=== PATIENT | male | born 1965 | race Caucasian/White ===

== ENCOUNTER 2018-05-31 10:56 | Emergency (ER) | payer OTHER ==
[2018-05-31 11:07] VITALS: RESP 18
--- NOTE | 2018-05-31 11:27 | XR ---
EXAMINATION TYPE: XR knee complete RT DATE OF EXAM: 05/31/2018 COMPARISON: 10/11/2013 HISTORY: Pain TECHNIQUE: Three-view right knee FINDINGS: Very minimal spurring is from the medial femoral condyle. This is stable. No acute fracture s are evident. No joint effusion is evident. IMPRESSION: 1. No acute osseous abnormality.
--- NOTE | 2018-05-31 12:13 | ED ---
General Adult HPI - General Chief complaint: Extremity Injury, Lower Stated complaint: Knee Pain Time Seen by Provider: 05/31/18 11:06 Source: patient, RN notes reviewed, old records reviewed Mode of arrival: ambulatory Limitations: physical limitation - History of Present Illness Initial comments: This is a 53-year-old male the ER for evaluation of right knee pain today. Patient has history of knee issues and right knee issues including arthroscopy. Patient has no recent injuries or trauma. Patient is had knee pain times one year maybe longer. Patient states pain and symptoms of sniffling worsened since procedure of arthroscopy. Patient states she's had increased swelling. No new trauma. No new injury - Related Data Home Medications Medication Instructions Recorded Confirmed Amitriptyline HCl [Elavil] 10 mg PO DAILY 07/06/15 05/31/18 Atenolol/Chlorthalidone 1 tab PO DAILY 07/06/15 05/31/18 [Atenolol-Chlorthalidone 100-25] Atorvastatin [Lipitor] 10 mg PO DAILY 07/06/15 05/31/18 Ranitidine HCl [Zantac] 150 mg PO HS 12/03/15 05/31/18 Potassium Chloride ER [K-Dur 20] 20 meq PO DAILY 05/31/18 05/31/18 Allergies Allergy/AdvReac Type Severity Reaction Status Date / Time bee venom protein (honey bee) Allergy Swelling Verified 05/31/18 11:30 Review of Systems ROS Statement: Those systems with pertinent positive or pertinent negative responses have been documented in the HPI. ROS Other: All systems not noted in ROS Statement are negative. Past Medical History Past Medical History: COPD, GERD/Reflux, Hyperlipidemia, Hypertension, Skin Disorder Additional Past Medical History / Comment(s): Back Pain, rash on elbows History of Any Multi-Drug Resistant Organisms: MRSA Date of last positivie culture/infection: 05/13/2014 MDRO Source:: Right Axilla Past Surgical History: Back Surgery, Orthopedic Surgery, Tonsillectomy Additional Past Surgical History / Comment(s): left wrist surgery, surgery fx nose, rt elbow surgery, Past Anesthesia/Blood Transfusion Reactions: No Reported Reaction Past Psychological History: Depression Smoking Status: Current every day smoker Past Alcohol Use History: None Reported Past Drug Use History: None Reported - Past Family History Mother Family Medical History: Cancer General Exam - General Exam Comments Initial Comments: Patient has mild effusion and tenderness to right knee Limitations: physical limitation General appearance: alert, in no apparent distress Head exam: Present: atraumatic, normocephalic, normal inspection Eye exam: Present: normal appearance, PERRL, EOMI. Absent: scleral icterus, conjunctival injection, periorbital swelling ENT exam: Present: normal exam, mucous membranes moist Neck exam: Present: normal inspection. Absent: tenderness, meningismus, lymphadenopathy Respiratory exam: Present: normal lung sounds bilaterally. Absent: respiratory distress, wheezes, rales, rhonchi, stridor Cardiovascular Exam: Present: regular rate, normal rhythm, normal heart sounds. Absent: systolic murmur, diastolic murmur, rubs, gallop, clicks GI/Abdominal exam: Present: soft, normal bowel sounds. Absent: distended, tenderness, guarding, rebound, rigid Extremities exam: Present: normal inspection, full ROM, normal capillary refill. Absent: tenderness, pedal edema, joint swelling, calf tenderness Back exam: Present: normal inspection Neurological exam: Present: alert, oriented X3, CN II-XII intact Psychiatric exam: Present: normal affect, normal mood Skin exam: Present: warm, dry, intact, normal color. Absent: rash Course Vital Signs 05/31/18 11:04 Temperature 98.4 F Pulse Rate 92 Respiratory 18 Rate Blood Pressure 152/101 O2 Sat by Pulse 97 Oximetry - Reevaluation(s) Reevaluation #1: 05/31/18 12:12 Spoke with patient regarding the need for The orthopedic care and follow-up. Patient states he has had arthroscopy in this knee in the past. Medical Decision Making - Medical Decision Making 53 male the ER for evaluation of right knee pain, chronic knee pain greater than one year. Patient has normal x-ray here today, we'll give follow-up with orthopedics for continued evaluation management of knee pain and effusion - Radiology Data Radiology results: report reviewed (X-ray right knee is negative), image reviewed Disposition Clinical Impression: Right knee pain, Effusion, right knee Disposition: HOME SELF-CARE Instructions: Knee Pain (ED) Is patient prescribed a controlled substance at d/c from ED?: No Referrals: Darian Freire MD [Medical Doctor] - 1-2 days
[2018-05-31 12:36] VITALS: BP 146/98; PULSE 90; TEMP 97.1
== END 2018-05-31 12:35 | disposition home or self-care (01) ==
LOC: EC 10:56
DX: M25.461 Effusion, right knee (principal); M25.561 Pain in right knee; K21.9 Gastro-esophageal reflux disease without esophagitis; E78.5 Hyperlipidemia, unspecified; I10 Essential (primary) hypertension; F32.9 Major depressive disorder, single episode, unspecified; F17.200 Nicotine dependence, unspecified, uncomplicated; Z86.14 Personal history of Methicillin resistant Staphylococcus aureus infection; Z79.899 Other long term (current) drug therapy; Z91.030 Bee allergy status
CPT/HCPCS: 99284

== ENCOUNTER → 2018-11-05 | Outpatient (CLI) | payer OTHER ==
--- NOTE | 2018-11-05 13:19 | EST ---
EXERCISE STRESS DATE OF SERVICE: 11/05/2018 AGE: 53 SEX: Male HT: 70 WT: 230 PROTOCOL: Colby STAGE: I DURATION OF EXERCISE: 3 minutes HEART RATE REST: 77 BLOOD PRESSURE REST: 114/71 MAXIMUM HEART RATE ACHIEVED: 113 MAXIMUM BLOOD PRESSURE: 164/101 85% MPHR: 144 100% MPHR: 169 METS: 4.4 INDICATIONS: Chest pain. CLINICAL INFORMATION: STRESS DATA: Pretesting physical examination showed a heart rate of 77, pressure is 141/71 mmHg. Baseline EKG showed sinus mechanism. The patient exercised on the treadmill according to Colby protocol for a total of 3 minutes and achieved 4.4 METs. The max heart rate was 113, which is about 67% of maximum predicted heart rate. Maximum blood pressure was 164/101 mmHg. Clinically the patient did not have any symptoms of chest pain or chest discomfort but he develop knee pain that prevented him from continuing exercising. CONCLUSION: 1. Poor exercise tolerance. 2. Nondiagnostic stress test due to the patient not achieving 85% of maximum predicted heart rate. 3. Different modality of stress test is recommended. MMODL / IJN: [id number] /
== END | disposition home or self-care (01) ==
LOC: RADNMMAIN 10:33
PROVIDERS: ATTEND Internal Medicine
DX: R07.9 Chest pain, unspecified (principal)
CPT/HCPCS: 93017

== ENCOUNTER → 2019-03-07 | Outpatient (CLI) | payer OTHER ==
[~2019-03-07] MED LIST: REGADENOSON 0.4 MG/5 ML SYRINGE IV ONE
--- NOTE | 2019-03-07 12:49 | NM ---
EXAMINATION TYPE: NM stress lexiscan cardiolite DATE OF EXAM: 03/07/2019 COMPARISON: NONE HISTORY: Chest pain TECHNIQUE: After the intravenous administration of 9.95 mCi Tc 99m Sestamibi - Cardiolite resting SP ECT images acquired 55 minutes post injection. The patient received 0.4mg Lexiscan, 24.3 mCi Tc 99m Sestamibi - Stress images obtained [address] injection FINDINGS: Review of stress and rest SPECT images demonstrates no reversible perfusion abnormality. Perfusion a bnormality seen in the inferior wall on rest images does not persist on stress images and therefore i s artifactual either related to diaphragmatic attenuation or GI attenuation. Gated analysis shows nor mal wall motion with an estimated left ventricular ejection fraction of 59 %. TID is within normal li mits calculated at 1.15. IMPRESSION: No scintigraphic evidence for reversible ischemia.
--- NOTE | 2019-03-07 19:56 | EST ---
EXERCISE STRESS AGE: 53 SEX: Male HT: 5'11" WT: 219 pounds PROTOCOL: Lexiscan Cardiolite STAGE: DURATION OF EXERCISE: HEART RATE REST: 65 BLOOD PRESSURE REST: 108/65 MAXIMUM HEART RATE ACHIEVED: 86 MAXIMUM BLOOD PRESSURE: 108/65 85% MPHR: 100% MPHR: METS: INDICATIONS: Chest pain. CLINICAL INFORMATION: Baseline rhythm is sinus mechanism, rate 65, normal axis, intervals, minor nonspecific ST-T wave changes. Baseline blood pressure 108/65 mmHg. Patient received an injection of Lexiscan. Electrocardiographic monitoring revealed no evidence of diagnostic ischemic ST deviation. Cardiolite was injected per protocol. CONCLUSION: 1. Non-diagnostic electrocardiograph stress testing. 2. Nuclear images will be reported separately. MMODL / IJN: [id number] /
== END | disposition home or self-care (01) ==
LOC: RADNMMAIN 08:28
PROVIDERS: ATTEND Internal Medicine
DX: R07.9 Chest pain, unspecified (principal)
CPT/HCPCS: 93017; 78452; A9500; J2785

== ENCOUNTER → 2019-03-11 | Outpatient (CLI) | payer OTHER ==
--- NOTE | 2019-03-11 08:30 | CT ---
EXAMINATION TYPE: CT brain wo con DATE OF EXAM: 03/11/2019 COMPARISON: None HISTORY: Headache, syncope,dizziness CT DLP: [address] of the brain was performed. The ventricles, basal cisterns and sulci overlying the cerebral convexities demonstrate mild enlargem ent. There is no evidence for intracranial hemorrhage or sulcal effacement. There is decreased attenuation about the periventricular white matter and deep white matter of both c erebral hemispheres, compatible with chronic small vessel ischemia. Differential diagnosis does inclu de demyelination. No mass effects are seen.No midline shift. Osseous calvarium is intact. If symptoms persist consider MRI. IMPRESSION: 1. Age related atrophic and chronic small vessel ischemic change without acute intracranial process s een at this time.
== END | disposition home or self-care (01) ==
LOC: RADCTMAIN 07:40
PROVIDERS: ATTEND Internal Medicine
DX: G31.1 Senile degeneration of brain, not elsewhere classified (principal); I67.82 Cerebral ischemia
CPT/HCPCS: 70450

== ENCOUNTER → 2019-05-05 | Outpatient (CLI) | payer OTHER ==
--- NOTE | 2019-05-05 22:43 | MR ---
EXAMINATION TYPE: MR knee RT wo con DATE OF EXAM: 05/05/2019 COMPARISON: Prior right knee MRI December 05, 2012. Right knee x-ray May 31, 2018 HISTORY: Medial meniscal tear and ACL tear per order. Pain and swelling for 5 years with history of p rior surgery per patient. TECHNIQUE: Multiplanar, multisequence images of the knee is performed without IV contrast. FINDINGS: MEDIAL MENISCUS: Anterior and posterior horns are intact without tear. LATERAL MENISCUS: Posterior horn is intact without tear. Further progression of tear anterior horn wi th increased abnormal signal now extending to superior and inferior articular surfaces. CRUCIATE LIGAMENTS: The anterior and posterior cruciate ligaments are intact and unremarkable. COLLATERAL LIGAMENTS: The medial collateral ligament and lateral collateral ligament complex are inta ct and unremarkable. EXTENSOR MECHANISM: Visualized quadriceps and patellar tendons are intact. EFFUSION: No significant suprapatellar joint effusion. POPLITEAL CYST: No popliteal/neri cyst. TRICOMPARTMENT SPACES: Mild to moderate tricompartment joint space loss with mild to moderate spurrin g with findings most prominent patellofemoral compartment. CARTILAGE: There are areas of full-thickness chondromalacia patella that are present. BONE MARROW SIGNAL: Areas of heterogeneous increased T2 signal involving the posterior aspect of the patella are identified. Progression of findings from prior MRI noted. OTHER: No additional significant abnormality is appreciated. IMPRESSION: 1. Full-thickness tear anterior horn lateral meniscus with progression from 2013 MRI. 2. Fairly moderate tricompartment degenerative changes most prominent patellofemoral compartment wher e there is significant chondromalacia patella and progression from 2013 MRI noted.
== END | disposition home or self-care (01) ==
LOC: RADMRIMAIN 19:02
PROVIDERS: ATTEND Orthopaedic Surgery
DX: M22.41 Chondromalacia patellae, right knee (principal); S83.281A Other tear of lateral meniscus, current injury, right knee, initial encounter; C49.9 Malignant neoplasm of connective and soft tissue, unspecified

== ENCOUNTER → 2019-06-02 | Outpatient (CLI) | payer OTHER ==
--- NOTE | 2019-06-02 16:16 | CT ---
EXAMINATION TYPE: CT chest wo con DATE OF EXAM: 06/02/2019 COMPARISON: NONE HISTORY: Chest pain for several years. Pt c/o palpable lump forming near xiphoid process CT DLP: 978.50 mGycm. Automated Exposure Control for Dose Reduction was Utilized. TECHNIQUE: CT scan of the thorax is performed without IV contrast. High resolution protocol is perfo rmed as requested with 1 mm sequences obtained in 10 mm intervals in supine and prone technique. FINDINGS: LUNGS: Focal linear scarring anteriorly right middle lobe is present. No suspicious peripheral reticu lation and fibrosis. No pleural effusion. No bronchiectasis. No large mass. No pneumothorax bilateral ly. MEDIASTINUM: Lack of IV contrast is noted to limit evaluation for mediastinal and especially hilar ad enopathy. There are no definitive greater than 1 cm hilar or mediastinal lymph nodes. No cardiomega ly or pericardial effusion is seen. Moderate to severe three-vessel coronary artery calcification. OTHER: No additional significant abnormality is seen. IMPRESSION: Focal linear scarring anterior right middle lobe. No significant peripheral fibrotic ho ges otherwise. No acute pulmonary process is seen. Moderate to severe three-vessel coronary artery ca lcification should be correlated with additional coronary risk factors.
== END | disposition home or self-care (01) ==
LOC: RADCTMAIN 15:43
PROVIDERS: ATTEND Internal Medicine
DX: I25.10 Atherosclerotic heart disease of native coronary artery without angina pectoris (principal); R07.9 Chest pain, unspecified
CPT/HCPCS: 71250

== ENCOUNTER → 2019-07-18 | Outpatient (CLI) | payer OTHER ==
[2019-07-18 11:05] LABS: HCT 40.1 % (39.0-53.0); HGB 13.7 gm/dL (13.0-17.5); MCH 29.1 pg (25.0-35.0); MCHC 34.1 g/dL (31.0-37.0); MCV 85.4 fL (80.0-100.0); Mean Platelet Volume 7.7; Platelet Count 244 k/uL (150-450); RBC 4.69 m/uL (4.30-5.90); RDW 13.2 % (11.5-15.5); WBC 8.1 k/uL (3.8-10.6)
[2019-07-18 11:17] LABS: African American GFR (CKD) >90 (>60 ml/min/1.73 sqM); Anion Gap 10 mmol/L; Blood Urea Nitrogen 22 mg/dL (9-20); Carbon Dioxide 28 mmol/L (22-30); Chloride 103 mmol/L (98-107); Potassium 4.2 mmol/L (3.5-5.1); Sodium 141 mmol/L (137-145)
== END | disposition home or self-care (01) ==
LOC: LABPAT 10:09
PROVIDERS: ATTEND Internal Medicine Interventional Cardiology
DX: Z01.812 Encounter for preprocedural laboratory examination (principal)
CPT/HCPCS: 80051; 82565; 84520; 85027

== ENCOUNTER → 2019-07-21 | Day surgery (SDC) | payer OTHER ==
[2019-07-16 14:42] VITALS: BMI 32.3
[~2019-07-21] MED LIST changes: +ALPRAZolam 0.25 MG TAB PO PRN; +ALPRAZolam 0.5 MG TAB PO PRN; +ASPIRIN 325 MG TAB PO STA; +ATORVASTATIN 80 MG TAB PO STA; +HEPARIN SODIUM 1,000 UN/ML (10ML VL) IV ONE; +HEPARIN SODIUM 1,000 UN/ML (10ML VL) ONE; +HEPARIN SODIUM,PORCINE 30 ML 30 ML ONE; +IOPAMIDOL-370 125ML BTL INJ ONE; +LIDOCAINE 1% INJ 10MG/ML (20 ML MDV) ONE; +LIDOCAINE 1% INJ 10MG/ML (20 ML MDV) SQ ONE; +MIDAZOLAM 2 MG/2 ML VIAL IV ONE; +NITROGLYCERIN SL TABS 0.4 MG TAB SUBLINGUAL PRN; -REGADENOSON 0.4 MG/5 ML SYRINGE IV ONE; +RX INFO: IV CONTRAST WAS GIVEN 1 EACH MISC MISCELLANE PRN; +SODIUM CHLORIDE 0.9% 1,000 ML IV SCH; +SODIUM CHLORIDE 0.9% 1,000 ML in EMPTY BAG 1 BAG IV ONE; +VERAPAMIL 2.5 MG/ML 2 ML AMP ONE; +fentaNYL (PF) 50 MCG/ML 2 ML AMP IV ONE; +fentaNYL (PF) 50 MCG/ML 2 ML AMP ONE
[2019-07-21 10:44] VITALS: RESP 16
[2019-07-21] MEDS: VERAPAMIL SYRINGE (5 MG/10 ML) INTRAARTER ONE ×2 (11:00→11:10)
--- NOTE | 2019-07-21 11:21 | P.PCN ---
Date of Procedure: 07/21/19 Operative Findings: CARDIAC CATHETERIZATION PERFORMING PHYSICIAN: Indra Bhagat MD, RPVI PROCEDURE PERFORMED: 1. Selective right and left coronary angiogram 2. Left heart catheterization INDICATION: This is a pleasant 54-year-old gentleman with hypertension and dyslipidemia who was experiencing symptoms of chest pain and shortness of breath. He underwent a computed tomography scan of the chest which revealed coronary calcifications. Because of the symptoms are getting worse we decided to pursue with a coronary angiogram. COMPLICATION: None APPROACH: Right radial artery LEVEL OF SEDATION: Moderate with a sedation length of 14 minutes PROCEDURE DESCRIPTION: After obtaining an informed consent, the patient was brought to cardiac laboratory chemist. Local anesthesia was performed using lidocaine subcutaneously. The right radial artery was cannulated using Seldinger technique, the guidewire passed easily, following that we advanced a 5-Kenyan sheath dilator assembly, the wire and dilator were removed and sheath was flushed. Following that, 2 mg of verapamil along with 5000 unit heparin were given. Selective right and left coronary angiogram using a 6-Kenyan JR4 and JL 3.5 catheters. Following that we did left heart catheterization using 6-Kenyan pigtail catheter. The procedure was completed there was no complication. SELECTIVE CORONARY ANGIOGRAM: The right coronary artery: Is a large caliber vessel and a dominant vessel. The proximal RCA has mild d isease only. In the mid and distal portion appears to be angiographically normal. Bifurcates into PDA and PLV branches and both appeared to be angiographically normal. Left main: Calcified but angiographically normal. The left circumflex: It is a large caliber vessel and nondominant vessel. The left circumflex is angiographically normal. In the midportion gives rises into a large OM branch w hich appeared to be angiographically normal. The left anterior descending artery: Is a large caliber vessel. Its angiographically normal. Gives rises into the first and second diagonal branches and both appeared to be angiographically normal. HEMODYNAMICS: The LVEDP was 12 mmHg without significant gradient across aortic valve CONCLUSION: 1. Calcified right and left coronary systems 2. Mild disease involving the RCA POSTPROCEDURE MANAGEMENT: 1. Aggressive cholesterol control 2. Smoking cessation 3. Follow-up with the patient
[2019-07-21 18:50] VITALS: BP 133/78; PULSE 76
== END | disposition home or self-care (01) ==
LOC: CATHCVL 09:51
PROVIDERS: ATTEND Internal Medicine Interventional Cardiology
DX: I25.10 Atherosclerotic heart disease of native coronary artery without angina pectoris (principal); I25.84 Coronary atherosclerosis due to calcified coronary lesion; F17.200 Nicotine dependence, unspecified, uncomplicated; Z79.82 Long term (current) use of aspirin; Z79.899 Other long term (current) drug therapy; E78.5 Hyperlipidemia, unspecified; I10 Essential (primary) hypertension
CPT/HCPCS: 93458; C1769; C1894; J2250; J2001; J3010; J1644; Q9967

== ENCOUNTER 2020-02-25 14:09 | Observation (INO) | payer OTHER ==
[2020-02-25 14:21] VITALS: TEMP 98.2
[2020-02-25] MEDS ORDERED: ASPIRIN 81 MG PO STA (14:39)
[2020-02-25] MEDS ORDERED: NITROGLYCERIN OINT 1 INCH/GM PACKET TOPICAL STA (14:39)
--- NOTE | 2020-02-25 14:42 | ED ---
General Adult HPI - General Chief complaint: Chest Pain Stated complaint: Chest Pain Time Seen by Provider: 02/25/20 14:23 Source: patient, RN notes reviewed Mode of arrival: wheelchair Limitations: no limitations - History of Present Illness Initial comments: Patient is a pleasant 54-year-old male presenting to the emergency Department with complaints of chest discomfort. Onset of symptoms was several weeks ago. Patient has intermittent episodes that do get severe. Patient has sharp discomfort in the left chest and has pressure in his left arm to the elbow. Patient feels sweaty and short of breath with it. Patient also gets a little bit lightheaded. No nausea. Last heart catheterization was June. - Related Data Home Medications Medication Instructions Recorded Confirmed Aspirin 162 mg PO DAILY 07/16/19 02/25/20 Buprenorphine HCl/Naloxone HCl 1 film SL TID 07/16/19 02/25/20 [Suboxone 8 mg-2 mg Sl Film] Furosemide [Lasix] 20 mg PO DAILY 07/16/19 02/25/20 Atorvastatin [Lipitor] 20 mg PO HS 02/25/20 02/25/20 Omeprazole 20 mg PO DAILY 02/25/20 02/25/20 Potassium Chloride [K-Tab ER] 10 meq PO DAILY 02/25/20 02/25/20 Valsartan [Diovan] 160 mg PO DAILY 02/25/20 02/25/20 Allergies Allergy/AdvReac Type Severity Reaction Status Date / Time bee venom protein (honey bee) Allergy Swelling Verified 02/25/20 15:13 Review of Systems ROS Statement: Those systems with pertinent positive or pertinent negative responses have been documented in the HPI. ROS Other: All systems not noted in ROS Statement are negative. Constitutional: Denies: fever Eyes: Denies: eye pain ENT: Denies: ear pain Respiratory: Reports: as per HPI. Denies: cough Cardiovascular: Reports: as per HPI, chest pain Endocrine: Denies: fatigue Gastrointestinal: Denies: abdominal pain Genitourinary: Denies: dysuria Musculoskeletal: Denies: back pain Skin: Denies: rash Neurological: Denies: weakness Past Medical History Past Medical History: COPD, GERD/Reflux, Hyperlipidemia, Hypertension, Oste oarthritis (OA), Rheumatoid Arthritis (RA), Skin Disorder, Syncope, Vascular Disorder Additional Past Medical History / Comment(s): Back Pain, knee pain, swelling in feet, frequent headaches, chronic insomnia, granuloma anular skin condition History of Any Multi-Drug Resistant Organisms: MRSA Date of last positivie culture/infection: 05/13/2014 MDRO Source:: Right Axilla Past Surgical History: Back Surgery, Orthopedic Surgery, Tonsillectomy Additional Past Surgical History / Comment(s): left wrist surgery, surgery fx nose, rt elbow surgery, back fusion x2, arthroscopy knee Past Anesthesia/Blood Transfusion Reactions: No Reported Reaction Past Psychological History: ADD/ADHD, Anxiety, Depression Smoking Status: Current every day smoker Past Alcohol Use History: None Reported Past Drug Use History: Marijuana - Past Family History Mother Family Medical History: Cancer General Exam Limitations: no limitations General appearance: alert, in no apparent distress Head exam: Present: normocephalic Eye exam: Present: normal appearance Neck exam: Present: normal inspection Respiratory exam: Present: normal lung sounds bilaterally. Absent: chest wall tenderness Cardiovascular Exam: Present: regular rate, normal rhythm Expanded Peripheral pulses: 2+: Radial (R), Radial (L), Posterior Tibialis (R), Posterior Tibialis (L) GI/Abdominal exam: Present: soft. Absent: distended, tenderness Extremities exam: Present: normal inspection. Absent: pedal edema, calf tenderness Neurological exam: Present: alert Psychiatric exam: Present: normal affect, normal mood Skin exam: Present: normal color Course Vital Signs 02/25/20 02/25/20 14:19 15:21 Temperature 98.2 F Pulse Rate 69 79 Respiratory 18 16 Rate Blood Pressure 144/96 131/80 O2 Sat by Pulse 97 97 Oximetry EKG Findings - EKG Comments: EKG Findings:: Neuro sinus rhythm 62. NJ 164. QRS 94. QT 418. QTC 424. Normal axis. Normal QRS. No acute ST change. Medical Decision Making - Medical Decision Making Patient reevaluated and resting comfortably in bed, symptom-free at this time. Patient updated on results and plan. Case was discussed in detail with Dr. Haley, who will admit covered for Dr. goel. Computed tomography scan of the chest was ordered. - Lab Data Result diagrams: 02/25/20 14:40 02/25/20 14:40 Lab Results 02/25/20 02/25/20 02/25/20 Range/Units 14:40 14:40 14:40 WBC 7.6 (3.8-10.6) k/uL RBC 4.44 (4.30-5.90) m/uL Hgb 12.6 L (13.0-17.5) gm/dL Hct 38.4 L (39.0-53.0) % MCV 86.5 (80.0-100.0) fL MCH 28.3 (25.0-35.0) pg MCHC 32.8 (31.0-37.0) g/dL RDW 13.7 (11.5-15.5) % Plt Count 166 (150-450) k/uL Neutrophils % 57 % Lymphocytes % 30 % Monocytes % 6 % Eosinophils % 5 % Basophils % 0 % Neutrophils # 4.3 (1.3-7.7) k/uL Lymphocytes # 2.3 (1.0-4.8) k/uL Monocytes # 0.5 (0-1.0) k/uL Eosinophils # 0.4 (0-0.7) k/uL Basophils # 0.0 (0-0.2) k/uL PT 10.1 (9.0-12.0) sec INR 1.0 (<1.2) APTT 30.6 H (22.0-30.0) sec D-Dimer 0.75 H (<0.60) mg/L FEU Sodium 139 (137-145) mmol/L Potassium 4.0 (3.5-5.1) mmol/L Chloride 105 (98-107) mmol/L Carbon Dioxide 29 (22-30) mmol/L Anion Gap 5 mmol/L BUN 15 (9-20) mg/dL Creatinine 0.83 (0.66-1.25) mg/dL Est GFR (CKD-EPI)AfAm >90 (>60 ml/min/1.73 sqM) Est GFR (CKD-EPI)NonAf >90 (>60 ml/min/1.73 sqM) Glucose 82 (74-99) mg/dL Calcium 9.2 (8.4-10.2) mg/dL Magnesium 2.1 (1.6-2.3) mg/dL Total Bilirubin 0.3 (0.2-1.3) mg/dL AST 38 (17-59) U/L ALT 32 (4-49) U/L Alkaline Phosphatase 51 (38-126) U/L Troponin I (0.000-0.034) ng/mL Total Protein 7.1 (6.3-8.2) g/dL Albumin 4.2 (3.5-5.0) g/dL 02/25/20 Range/Units 14:40 WBC (3.8-10.6) k/uL RBC (4.30-5.90) m/uL Hgb (13.0-17.5) gm/dL Hct (39.0-53.0) % MCV (80.0-100.0) fL MCH (25.0-35.0) pg MCHC (31.0-37.0) g/dL RDW (11.5-15.5) % Plt Count (150-450) k/uL Neutrophils % % Lymphocytes % % Monocytes % % Eosinophils % % Basophils % % Neutrophils # (1.3-7.7) k/uL Lymphocytes # (1.0-4.8) k/uL Monocytes # (0-1.0) k/uL Eosinophils # (0-0.7) k/uL Basophils # (0-0.2) k/uL PT (9.0-12.0) sec INR (<1.2) APTT (22.0-30.0) sec D-Dimer (<0.60) mg/L FEU Sodium (137-145) mmol/L Potassium (3.5-5.1) mmol/L Chloride (98-107) mmol/L Carbon Dioxide (22-30) mmol/L Anion Gap mmol/L BUN (9-20) mg/dL Creatinine (0.66-1.25) mg/dL Est GFR (CKD-EPI)AfAm (>60 ml/min/1.73 sqM) Est GFR (CKD-EPI)NonAf (>60 ml/min/1.73 sqM) Glucose (74-99) mg/dL Calcium (8.4-10.2) mg/dL Magnesium (1.6-2.3) mg/dL Total Bilirubin (0.2-1.3) mg/dL AST (17-59) U/L ALT (4-49) U/L Alkaline Phosphatase (38-126) U/L Troponin I <0.012 (0.000-0.034) ng/mL Total Protein (6.3-8.2) g/dL Albumin (3.5-5.0) g/dL - Radiology Data Radiology results: image reviewed (Chest x-ray shows COPD with borderline mild cardiomegaly.) Disposition Clinical Impression: Chest pain Disposition: ADMITTED IP TO THIS HOSP Is patient prescribed a controlled substance at d/c from ED?: No Referrals: Joseph Rodriguez MD [Primary Care Provider] - 1-2 days Decision Time: 15:44
[2020-02-25 14:53] LABS: Basophils % (A) 0 %; Eosinophils # (A) 0.4 k/uL (0-0.7); Eosinophils % (A) 5 %; HCT 38.4 % (39.0-53.0); HGB 12.6 gm/dL (13.0-17.5); Lymphocytes # (A) 2.3 k/uL (1.0-4.8); Lymphocytes % (A) 30 %; MCH 28.3 pg (25.0-35.0); MCHC 32.8 g/dL (31.0-37.0); MCV 86.5 fL (80.0-100.0); Mean Platelet Volume 8.7; Monocytes # (A) 0.5 k/uL (0-1.0); Monocytes % (A) 6 %; Neutrophils # (A) 4.3 k/uL (1.3-7.7); Neutrophils % (A) 57 %; Platelet Count 166 k/uL (150-450); RBC 4.44 m/uL (4.30-5.90); RDW 13.7 % (11.5-15.5); WBC 7.6 k/uL (3.8-10.6)
--- NOTE | 2020-02-25 15:06 | XR ---
EXAMINATION TYPE: XR chest 2V DATE OF EXAM: 02/25/2020 COMPARISON: 06/02/2019 TECHNIQUE: PA and lateral views submitted. HISTORY: Chest FINDINGS: The lungs are clear and there is no pneumothorax, pleural effusion, or focal pneumonia. Heart mildl y prominent. Hypertrophic and degenerative change of the spine. No overt failure. Biapical pleural th ickening. Hyperinflation suggests COPD. IMPRESSION: 1. COPD with borderline to mild cardiomegaly. No overt failure..
[2020-02-25 15:07] LABS: ALT 32 U/L (4-49); AST 38 U/L (17-59); African American GFR (CKD) >90 (>60 ml/min/1.73 sqM); Albumin 4.2 g/dL (3.5-5.0); Alkaline Phosphatase 51 U/L (38-126); Anion Gap 5 mmol/L; Blood Urea Nitrogen 15 mg/dL (9-20); Calcium 9.2 mg/dL (8.4-10.2); Carbon Dioxide 29 mmol/L (22-30); Chloride 105 mmol/L (98-107); Glucose 82 mg/dL (74-99); Magnesium 2.1 mg/dL (1.6-2.3); Non-African American GFR(CKD) >90 (>60 ml/min/1.73 sqM); Sodium 139 mmol/L (137-145); Total Bilirubin 0.3 mg/dL (0.2-1.3); Total Protein 7.1 g/dL (6.3-8.2)
[2020-02-25 15:08] LABS: Partial Thromboplastin Time 30.6 sec (22.0-30.0); Prothrombin Time 10.1 sec (9.0-12.0)
[2020-02-25 15:16] LABS: D-Dimer 0.75 mg/L FEU (<0.60)
[2020-02-25 15:24] VITALS: RESP 16
[2020-02-25] MEDS ORDERED: NITROGLYCERIN SL TABS 0.4 MG TAB SUBLINGUAL PRN (15:44)
--- NOTE | 2020-02-25 15:54 | CT ---
CT CHEST FOR PULMONARY EMBOLISM. EXAMINATION TYPE: CT angio chest DATE OF EXAM: 02/25/2020 INDICATION: chest pain, elevated d-dimer CT DLP: 451.8 mGycm, Automated exposure control for dose reduction was used. CONTRAST: Patient injected with 97cc mL of Isovue 370. COMPARISON: CT chest 06/02/2019 TECHNIQUE: CT of the chest is performed on a spiral scan at 2 mm thick sections. Study is performed with intravenous contrast timed for evaluation for pulmonary embolism. This will limit additional po rtions of the evaluation. 3-D MIP images reconstructed by the technologist are reviewed on the compu ter in the coronal and sagittal planes. FINDINGS: No persistent filling defects are evident to suggest an acute pulmonary embolism. No mediastinal or hilar adenopathy enlarged by CT criteria is evident. The ascending aorta diameter at the level of the main pulmonary artery is 3.4 cm. The main pulmonary artery diameter at the bifur cation is 3.0 cm. Lung windows are clear. Limited CT section through the upper abdomen are unremarkable. IMPRESSIONS: 1. No acute pulmonary embolism.
--- NOTE | 2020-02-25 17:42 | P.HPIM ---
History of Present Illness Patient is a pleasant 54-year-old male came in with compensative chest pain has been going on for a few days episode ache on and off with the increasing frequency since yesterday on the left side of the chest radiating to the left ar m pressure-like sensation mild to moderate in severity only lasts for a few minutes patient is little bit lightheaded along with mild diaphoresis no nausea not associated with food nonpleuritic patient had mildly elevated d-dimer CT angios the chest was negative for pulmonary embolism no cough no pneumonia on the CAT scan. Patient had a stress test about any ago which was negative, patient also had a cardiac catheterization by Dr. Bhagat which showed some atherosclerotic vascular disease but didn't really need any intervention at that time, as per the report of that is calcified right and left coronary system mild disease involving RCA. Patient can use to smoke. Review of Systems REVIEW OF SYSTEMS: CONSTITUTIONAL: No fever, no malaise, no fatigue. HEENT: No recent visual problems or hearing problems. Denied any sore throat. CARDIOVASCULAR: No orthopnea, PND, no palpitations, no syncope. PULMONARY: no cough, no hemoptysis. GASTROINTESTINAL: No diarrhea, no nausea, no vomiting, no abdominal pain. NEUROLOGICAL: No headaches, no weakness, no numbness. HEMATOLOGICAL: Denies any bleeding or petechiae. GENITOURINARY: Denies any burning micturition, frequency, or urgency. MUSCULOSKELETAL/RHEUMATOLOGICAL: Denies any joint pain, swelling, or any muscle pain. ENDOCRINE: Denies any polyuria or polydipsia. The rest of the 14-point review of systems is negative. Past Medical History Past Medical History: COPD, GERD/Reflux, Hyperlipidemia, Hypertension, Osteoarthritis (OA), Rheumatoid Arthritis (RA), Skin Disorder, Syncope, Vascular Disorder Additional Past Medical History / Comment(s): Back Pain, knee pain, swelling in feet, frequent headaches, chronic insomnia, granuloma anular skin condition History of Any Multi-Drug Resistant Organisms: MRSA Date of last positivie culture/infection: 05/13/2014 MDRO Source:: Right Axilla Past Surgical History: Back Surgery, Orthopedic Surgery, Tonsillectomy Additional Past Surgical History / Comment(s): left wrist surgery, surgery fx nose, rt elbow surgery, back fusion x2, arthroscopy knee Past Anesthesia/Blood Transfusion Reactions: No Reported Reaction Past Psychological History: ADD/ADHD, Anxiety, Depression Smoking Status: Current every day smoker Past Alcohol Use History: None Reported Past Drug Use History: Marijuana - Past Family History Mother Family Medical History: Cancer Medications and Allergies Home Medications Medication Instructions Recorded Confirmed Type Aspirin 162 mg PO DAILY 07/16/19 02/25/20 History Buprenorphine HCl/Naloxone HCl 1 film SL TID 07/16/19 02/25/20 History [Suboxone 8 mg-2 mg Sl Film] Furosemide [Lasix] 20 mg PO DAILY 07/16/19 02/25/20 History Atorvastatin [Lipitor] 20 mg PO HS 02/25/20 02/25/20 History Omeprazole 20 mg PO DAILY 02/25/20 02/25/20 History Potassium Chloride [K-Tab ER] 10 meq PO DAILY 02/25/20 02/25/20 History Valsartan [Diovan] 160 mg PO DAILY 02/25/20 02/25/20 History Allergies Allergy/AdvReac Type Severity Reaction Status Date / Time bee venom protein (honey bee) Allergy Swelling Verified 02/25/20 15:13 Physical Exam Vitals: Vital Signs Temp Pulse Resp BP Pulse Ox 02/25/20 15:21 79 16 131/80 97 02/25/20 14:19 98.2 F 69 18 144/96 97 Intake and Output 02/25/20 02/25/20 02/25/20 06:59 14:59 22:59 Other: Weight 102.058 kg PHYSICAL EXAMINATION: GENERAL: The patient is alert and oriented x3, not in any acute distress. Well developed, well nourished. HEENT: Pupils are round and equally reacting to light. EOMI. No scleral icterus. No conjunctival pallor. Normocephalic, atraumatic. No pharyngeal erythema. No thyromegaly. CARDIOVASCULAR: S1 and S2 present. No murmurs, rubs, or gallops. PULMONARY: Chest is clear to auscultation, no wheezing or crackles. ABDOMEN: Soft, nontender, nondistended, normoactive bowel sounds. No palpable o rganomegaly. MUSCULOSKELETAL: No joint swelling or deformity. EXTREMITIES: No cyanosis, clubbing, or pedal edema. NEUROLOGICAL: Gross neurological examination did not reveal any focal deficits. SKIN: No rashes. Results CBC & Chem 7: 02/25/20 14:40 02/25/20 14:40 Labs: Abnormal Lab Results - Last 24 Hours (Table) 02/25/20 02/25/20 Range/Units 14:40 14:40 Hgb 12.6 L (13.0-17.5) gm/dL Hct 38.4 L (39.0-53.0) % APTT 30.6 H (22.0-30.0) sec D-Dimer 0.75 H (<0.60) mg/L FEU Assessment and Plan Plan: -Chest pain with some typical features patient does have risk factors although the EKG is within normal limits troponin is negative, we'll rule out acute coronary syndromes and unstable angina and cardiology will evaluate the patient further management as per cardiology. -COPD without any acute exception of some hypogastric dysphagia reflux disease Hyperlipidemia - hypertension -Peripheral vascular disease with the continued nicotine use: Counseling was provided -ADHD, anxiety, depression For above-mentioned chronic medical problems patient resumed and continued on appropriate home medications.
[2020-02-25] MEDS ORDERED: NITROGLYCERIN OINT 1 INCH/GM PACKET TOPICAL SCH (18:00)
[2020-02-25 18:18] VITALS: BP 152/87; PULSE 92
[2020-02-25] MEDS ORDERED: ATORVASTATIN 20 MG TAB PO SCH (21:00)
[2020-02-25] MEDS ORDERED: PATIENT'S OWN (Buprenorphine Hcl/Naloxone Hcl [Suboxone 8 Mg-2 Mg Sl Film] 1 FILM) SUBLINGUAL SCH (22:00)
[2020-02-26] MEDS ORDERED: PANTOPRAZOLE 40 MG TABLET PO SCH (07:30)
[2020-02-26] MEDS ORDERED: ASPIRIN 325 MG TAB PO SCH (09:00)
[2020-02-26] MEDS ORDERED: VALSARTAN 160 MG TAB PO SCH (09:00)
[2020-02-26] MEDS ORDERED: FUROSEMIDE 20 MG TAB PO SCH (09:00)
[2020-02-26] MEDS ORDERED: POTASSIUM CHLORIDE ER 10 MEQ TAB.ER.PRT PO SCH (09:00)
--- NOTE | 2020-03-01 13:27 | P.DS ---
Providers Date of admission: 02/25/20 15:44 Expected date of discharge: 02/25/20 Attending physician: Alysia Haley Consults: 02/25/20 15:44 Consult Physician Urgent Consulting Provider: Indra Bhagat Consult Reason/Comments: cp Do you want consulting provider notified?: Yes Primary care physician: Jennifer Ruiz [facility] Course: Patient left AGAINST MEDICAL ADVICE Plan - Discharge Summary New Discharge Prescriptions: No Action Aspirin 162 mg PO DAILY Furosemide [Lasix] 20 mg PO DAILY Buprenorphine HCl/Naloxone HCl [Suboxone 8 mg-2 mg Sl Film] 1 film SL TID Valsartan [Diovan] 160 mg PO DAILY Potassium Chloride [K-Tab ER] 10 meq PO DAILY Atorvastatin [Lipitor] 20 mg PO HS Omeprazole 20 mg PO DAILY Discharge Medication List Aspirin 162 mg PO DAILY 07/16/19 [History] Buprenorphine HCl/Naloxone HCl [Suboxone 8 mg-2 mg Sl Film] 1 film SL TID 07/16/19 [History] Furosemide [Lasix] 20 mg PO DAILY 07/16/19 [History] Atorvastatin [Lipitor] 20 mg PO HS 02/25/20 [History] Omeprazole 20 mg PO DAILY 02/25/20 [History] Potassium Chloride [K-Tab ER] 10 meq PO DAILY 02/25/20 [History] Valsartan [Diovan] 160 mg PO DAILY 02/25/20 [History] Follow up Appointment(s)/Referral(s): Joseph Rodriguez MD [Primary Care Provider] - 1-2 days Discharge Disposition: Left Against Medical Advice
== END 2020-02-25 18:33 | disposition left against medical advice (07) ==
LOC: EC 14:09 → 1SOBS 15:44
PROVIDERS: ADMIT Internal Medicine; ATTEND Internal Medicine
DX: R07.89 Other chest pain (principal); R42 Dizziness and giddiness; R61 Generalized hyperhidrosis; M79.602 Pain in left arm; R06.02 Shortness of breath; R79.89 Other specified abnormal findings of blood chemistry; F17.200 Nicotine dependence, unspecified, uncomplicated; J44.9 Chronic obstructive pulmonary disease, unspecified; K21.9 Gastro-esophageal reflux disease without esophagitis; E78.5 Hyperlipidemia, unspecified; I10 Essential (primary) hypertension; M19.90 Unspecified osteoarthritis, unspecified site; M06.9 Rheumatoid arthritis, unspecified; M54.9 Dorsalgia, unspecified; M25.569 Pain in unspecified knee; M79.89 Other specified soft tissue disorders; R51 Headache; F51.04 Psychophysiologic insomnia; F41.9 Anxiety disorder, unspecified; F32.9 Major depressive disorder, single episode, unspecified; F90.9 Attention-deficit hyperactivity disorder, unspecified type; I73.9 Peripheral vascular disease, unspecified; L98.9 Disorder of the skin and subcutaneous tissue, unspecified; Z86.14 Personal history of Methicillin resistant Staphylococcus aureus infection; Z98.1 Arthrodesis status; Z79.82 Long term (current) use of aspirin; Z79.899 Other long term (current) drug therapy; Z79.891 Long term (current) use of opiate analgesic; Z91.030 Bee allergy status; Z80.9 Family history of malignant neoplasm, unspecified; Z20.828 Contact with and (suspected) exposure to other viral communicable diseases
CPT/HCPCS: 99285; 36415; 93005; 85379; 80053; 83735; 84484; 85025; 85610; 85730; 71046; 71275; G0378; U0003; Q9967

== ENCOUNTER → 2022-06-13 | Outpatient (CLI) | payer OTHER ==
--- NOTE | 2022-06-14 06:33 | MR ---
EXAMINATION TYPE: MR knee RT wo con DATE OF EXAM: 06/13/2022 COMPARISON: Prior MRI of right knee May 05, 2019 HISTORY: Right knee pain and swelling for 4+ years, history of prior surgery TECHNIQUE: Multiplanar, multisequence imaging of the right knee is performed without IV contrast. FINDINGS: MEDIAL MENISCUS: Anterior and posterior horns are intact without tear. LATERAL MENISCUS: More truncated appearance to anterior horn suggests interval partial meniscectomy c hanges. Some increase signal remains present seen best on coronal images 18 through 21 aerated CRUCIATE LIGAMENTS: The anterior and posterior cruciate ligaments are intact and unremarkable. COLLATERAL LIGAMENTS: The medial collateral ligament and lateral collateral ligament complex are inta ct and unremarkable. EXTENSOR MECHANISM: Visualized quadriceps and patellar tendons are intact. EFFUSION: Moderate to large size suprapatellar joint effusion is redemonstrated. POPLITEAL CYST: No popliteal/neri cyst. TRICOMPARTMENT SPACES: Moderate to severe patellofemoral compartment narrowing with mild spurring is redemonstrated. There is mild to moderate narrowing and spurring in the medial and lateral tibiofemor al compartments redemonstrated CARTILAGE: Significant chondromalacia patella with areas of full-thickness cartilaginous loss along t he posterior patellar pole redemonstrated. Additional cartilaginous loss medial lateral tibiofemoral compartments also redemonstrated without full-thickness loss. BONE MARROW SIGNAL: Areas of heterogeneous diminished T1 and increased T2 signal along the posterior patellar pole are again seen. New 8 mm round area of diminished T1 and increased T2 signal involving the anterior lateral aspect of the medial tibial femoral condyle with surrounding subtle T2 hyperinte nsity seen on coronal image 14. Findings suspicious for osteochondral injury and adjacent abnormal leonardo ne marrow edema. OTHER: No additional significant abnormality is appreciated. IMPRESSION: 1. Interval surgery anterior horn lateral meniscus thought present, some intrasubstance tear in the r emnant horn is now present. 2. Tricompartment degenerative changes with moderate to advanced findings in the patellofemoral redem onstrated as detailed above. 3. Moderate to large-sized suprapatellar joint effusion now noted. 4. New 8 mm osteochondral defect anterior lateral aspect of the medial tibial plateau is felt present .
== END | disposition home or self-care (01) ==
LOC: RADMRIMAIN 15:56
PROVIDERS: ATTEND Orthopaedic Surgery
DX: M17.11 Unilateral primary osteoarthritis, right knee (principal); M23.306 Other meniscus derangements, unspecified meniscus, right knee

== ENCOUNTER 2022-06-21 16:12 | Emergency (ER) | payer OTHER ==
[2022-06-21] MEDS ORDERED: DIPH,PERTUS(ACELL)TETVAC-LF 0.5 ML VIAL IM ONE (16:20)
[2022-06-21 16:21] VITALS: TEMP 98.3
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
[2022-06-21 19:59] VITALS: BP 129/67; PULSE 71; RESP 15
== END 2022-06-21 19:59 | disposition home or self-care (01) ==
LOC: EC 16:12
DX: S22.42XA Multiple fractures of ribs, left side, initial encounter for closed fracture (principal); S80.211A Abrasion, right knee, initial encounter; S00.81XA Abrasion of other part of head, initial encounter; S50.312A Abrasion of left elbow, initial encounter; S60.417A Abrasion of left little finger, initial encounter; J44.9 Chronic obstructive pulmonary disease, unspecified; I10 Essential (primary) hypertension; E78.5 Hyperlipidemia, unspecified; F17.200 Nicotine dependence, unspecified, uncomplicated; Z79.899 Other long term (current) drug therapy; Z91.030 Bee allergy status; Z88.5 Allergy status to narcotic agent; Z23 Encounter for immunization; V13.4XXA Pedal cycle driver injured in collision with car, pick-up truck or van in traffic accident, initial encounter; Y92.410 Unspecified street and highway as the place of occurrence of the external cause
CPT/HCPCS: 73562; 73660; 72125; 70450; 71260; 74177; 90715; 99284; 90471; Q9967

== ENCOUNTER → 2022-08-08 | Outpatient (CLI) | payer OTHER ==
[2022-08-08 18:27] LABS: Basophils # (A) 0.04 X 10*3/uL (0.00-0.10); Basophils % (A) 0.6 %; Eosinophils # (A) 0.27 X 10*3/uL (0.04-0.35); Eosinophils % (A) 4.3 %; HCT 42.1 % (39.6-50.0); HGB 13.6 g/dL (13.0-17.0); Immature Grans, Automated 0.3 %; Lymphocytes # (A) 1.27 X 10*3/uL (0.90-5.00); Lymphocytes % (A) 20.3 %; MCH 28.3 pg (27.0-32.0); MCHC 32.3 g/dL (32.0-37.0); MCV 87.5 fL (80.0-97.0); Mean Platelet Volume 12.1 fL (9.5-12.2); Monocytes # (A) 0.66 X 10*3/uL (0.20-1.00); Monocytes % (A) 10.5 %; NRBC Per 100 WBC 0 /100 WBCS (0.0-0.0); Platelet Count 203 X 10*3/uL (140-440); RBC 4.81 X 10*6/uL (4.40-5.60); RDW 13.5 % (11.5-14.5); WBC 6.26 X 10*3/uL (4.50-10.00)
[2022-08-08 18:37] LABS: Anion Gap 8.1 mmol/L (10.00-18.00); Carbon Dioxide 28.5 mmol/L (20.0-27.5); Potassium 4.4 mmol/L (3.5-5.5)
== END | disposition home or self-care (01) ==
LOC: LABPAT 12:46
PROVIDERS: ATTEND Orthopaedic Surgery
DX: Z01.812 Encounter for preprocedural laboratory examination (principal); M23.91 Unspecified internal derangement of right knee
CPT/HCPCS: 80051; 85025

== ENCOUNTER 2022-08-09 08:47 | Day surgery (SDC) | payer OTHER ==
[2022-08-07 12:46] VITALS: BMI 26.3
--- NOTE | 2022-08-08 13:37 | HP ---
HISTORY AND PHYSICAL DATE OF SURGERY: 08/09/2022. HISTORY OF PRESENT ILLNESS: Shon Allred is a 57-year-old patient seen with progressive right knee pain. We discussed options for treatment. He elected to proceed with right knee arthroscopy. Consent was obtained. PAST MEDICAL HISTORY: Noncontributory. SURGICAL HISTORY: Lumbar spine surgery. DAILY MEDICATIONS: Suboxone. ALLERGIES: None. SOCIAL HISTORY: He currently smokes tobacco. PHYSICAL EVALUATION OF THE RIGHT KNEE: His range of motion is 0-130, has a moderate to severe effusion. He is tender along the medial and lateral joint lines. Has positive medial Philipp's, positive lateral Philipp's. Ligaments stable. Hip rotation without pain. Distal neurovascular exam is intact. RADIOGRAPHS: Radiographs of the right knee reveal moderate osteoarthritic changes. MRI right knee revealed lateral meniscal tear, effusion, osteochondral defect. IMPRESSION: Internal derangement of right knee lateral meniscal tear. PLAN: Right knee arthroscopy with partial lateral meniscectomy and debridement. MMODL / IJN: [id number] /
[~2022-08-09 08:47] MED LIST changes: -ALPRAZolam 0.25 MG TAB PO PRN; -ALPRAZolam 0.5 MG TAB PO PRN; -ASPIRIN 325 MG TAB PO STA; -ATORVASTATIN 80 MG TAB PO STA; +DEXAMETHASONE SOD PHOSPHATE 4 MG/ML 1 ML VIAL IV ONE; -HEPARIN SODIUM 1,000 UN/ML (10ML VL) IV ONE; -HEPARIN SODIUM 1,000 UN/ML (10ML VL) ONE; -HEPARIN SODIUM,PORCINE 30 ML 30 ML ONE; -IOPAMIDOL-370 125ML BTL INJ ONE; +LACTATED RINGERS 1,000 ML IV SCH; -LIDOCAINE 1% INJ 10MG/ML (20 ML MDV) ONE; -LIDOCAINE 1% INJ 10MG/ML (20 ML MDV) SQ ONE; -MIDAZOLAM 2 MG/2 ML VIAL IV ONE; +MIDAZOLAM 2 MG/2 ML VIAL IV PRN; -NITROGLYCERIN SL TABS 0.4 MG TAB SUBLINGUAL PRN; +ONDANSETRON 4 MG/2 ML VIAL IVP ONE; -RX INFO: IV CONTRAST WAS GIVEN 1 EACH MISC MISCELLANE PRN; +SCOPOLAMINE 1 MG/72 HR PATCH TRANSDERM ONE; -SODIUM CHLORIDE 0.9% 1,000 ML IV SCH; -SODIUM CHLORIDE 0.9% 1,000 ML in EMPTY BAG 1 BAG IV ONE; -VERAPAMIL 2.5 MG/ML 2 ML AMP ONE; -fentaNYL (PF) 50 MCG/ML 2 ML AMP IV ONE; +fentaNYL (PF) 50 MCG/ML 2 ML AMP IV PRN; -fentaNYL (PF) 50 MCG/ML 2 ML AMP ONE
[2022-08-09 09:12] VITALS: TEMP 97
[2022-08-09] MEDS ORDERED: LACTATED RINGERS 1,000 ML IV ONE ×2 (09:12→10:49)
[2022-08-09] MEDS ORDERED: KETAMINE 10 MG/ML 20 ML VIAL ONE (10:13)
[2022-08-09] MEDS ORDERED: MIDAZOLAM 2 MG/2 ML VIAL ONE (10:13)
[2022-08-09] MEDS ORDERED: GLYCOPYRROLATE 0.2 MG/ML 2 ML VIAL ONE (10:13)
[2022-08-09] MEDS ORDERED: KETOROLAC 15 MG/ML 1 ML VIAL ONE (10:13)
[2022-08-09] MEDS ORDERED: PROPOFOL 10 MG/ML 20 ML VIAL IV ONE (10:13)
[2022-08-09] MEDS ORDERED: LIDOCAINE 2% INJ 20 MG/ML (2 ML VIAL) ONE (10:13)
[2022-08-09] MEDS ORDERED: BUPIVACAIN-EPI 0.25%-1:200,000 30 ML VIAL SQ ONE (10:38)
[2022-08-09] MEDS ORDERED: HYDROmorphone 0.5 MG/0.5 ML SYRINGE IVP ONE (11:10)
--- NOTE | 2022-08-09 11:14 | P.OP ---
Date of Procedure: 08/09/22 Preoperative Diagnosis: Internal derangement right knee Postoperative Diagnosis: 1. Tear medial and lateral meniscus right knee 2. Grade 4 chondromalacia lateral femoral condyle right knee 3. Reactive synovitis medial, lateral and suprapatellar compartments right knee 4. Partial ACL tear right knee Procedure(s) Performed: 1. Arthroscopic partial medial and lateral meniscectomy right knee 2. Arthroscopic microfracture lateral femoral condyle right knee 3. Arthroscopic partial synovectomy medial, lateral and suprapatellar compartments right knee 4. Arthroscopic debridement partial ACL tear right knee Anesthesia: LOLISA, local Surgeon: Lavon Ralph Estimated Blood Loss (ml): 11 Pathology: none sent Condition: stable Disposition: PACU Indications for Procedure: 57-year-old patient seen with progressive right knee pain. After having treatment options discussed, he elected to proceed with arthroscopy. Operative Findings: see description of procedure Description of Procedure: Patient was taken to the operative suite. Patient underwent a general anesthetic by the department of anesthesia. Patient was given preoperative antibiotics. The right lower extremity was placed in a well-padded arthroscopic leg grant. The right leg was prepped and draped in the normal sterile orthopedic fashion. A lateral parapatellar and suprapatellar incision was made. Trochars were inserted. Arthroscopy was initiated. Suprapatellar pouch revealed diffuse thick reactive synovitis. The patellofemoral joint appeared to articulate congruently. There was grade 2/3 chondromalacia the patellofemoral joint with no osteochondral tears present. The scope was guided into the medial gutter. No loose bodies or plica were identified. The scope was then guided into the medial compartment. A medial parapatellar incision was made. Trocar inserted followed by probe. There was a radial tear posterior horn medial meniscus. There were grade 2 chondromalacia changes of medial femoral condyle with a small osteochondral flap tears present. There was some thick reactive synovitis anteriorly. I performed a partial medial meniscectomy getting down to stable meniscal tissue. I performed a chondroplasty of the medial femoral condyle getting down to stable osteochondral tissue. I performed a partial synovectomy decompressing the reactive synovitis anteriorly. The residual meniscus was stable. The residual osteochondral surface appeared stable. There was good decompression of the synovitis. Scope and probe were then guided into the intercondylar notch. There was a partial tear involving the anterior cruc iate ligament. I introduced a motorized shaver and debrided that getting on a stable ligamentous tissue. The residual ligament appeared stable with about 50% residual tissue. Intraoperatively the knee felt stable. The PCL was intact. The scope and probe were then guided into lateral compartment. There was a complex tear involving the anterior horn and midbody of the lateral meniscus. There was thick reactive some-itis anteriorly. There was an area of grade 3/4 chondromalacia lateral femoral condyle with some osteochondral flap tears present. I performed a partial lateral meniscectomy getting down to stable meniscal tissue. I performed a chondroplasty of the lateral femoral condyle getting down to stable osteochondral tissue. I performed a partial synovectomy. I did note an area of exposed bone lateral femoral condyle measuring approximately 1 cm diameter weightbearing surface. I introduced a microfracture awl and performed a microfracture to the area penetrating the bone with resultant bleeding at the microfracture site. The residual meniscus was stable. The residual osteochondral surface appeared stable. There was good decompression of the synovitis. The scope was in guided back into the suprapatellar compartment. I introduced her I shaver into the suprapatellar compartment. I debrided some piecemeal fragments of meniscus I encountered. I performed a partial synovectomy. Shaver was now removed. There was good decompression of the synovitis. I took one more look around the entire knee, no residual debris. Instruments were now removed from the joint. The joint was infiltrated with .25% Marcaine. Steri-Strips were applied to the portal sites. Sterile dressings were applied. The patient was placed into a HERNANDEZ hose. No tourniquet was utilized. The patient was awakened, transferred to a bed and taken to recovery stable satisfactory condition.
[2022-08-09 11:23] VITALS: RESP 16
[2022-08-09] MEDS ORDERED: IBUPROFEN 200 MG TAB PO ONE (11:58)
[2022-08-09 12:09] VITALS: BP 148/93; PULSE 71
== END 2022-08-09 12:50 | disposition home or self-care (01) ==
LOC: OR 08:47
PROVIDERS: ATTEND Orthopaedic Surgery
DX: S83.281A Other tear of lateral meniscus, current injury, right knee, initial encounter (principal); S83.241A Other tear of medial meniscus, current injury, right knee, initial encounter; M17.11 Unilateral primary osteoarthritis, right knee; S83.511A Sprain of anterior cruciate ligament of right knee, initial encounter; F17.200 Nicotine dependence, unspecified, uncomplicated; X58.XXXA Exposure to other specified factors, initial encounter; M65.88 Other synovitis and tenosynovitis, other site; M94.261 Chondromalacia, right knee
CPT/HCPCS: 29880; 29879; J2250; J1100; J0690; J2405; J1885; J2704; J1170; J2001

== ENCOUNTER → 2022-10-12 | Outpatient (CLI) | payer OTHER ==
--- NOTE | 2022-10-12 20:24 | MR ---
EXAMINATION TYPE: MR lumbar spine wo con DATE OF EXAM: 10/12/2022 COMPARISON: Prior MRI lumbar spine July 20, 2014 HISTORY: Low back pain that radiates down right leg. Lumbar fusion and radiculopathy per order. TECHNIQUE: Multiplanar, multisequence imaging of the lumbar spine is performed without IV contrast. FINDINGS: Sagittal images of the lumbar spine show vertebral body heights and alignment to appear sta ble and satisfactory. There is artifact from interval surgery or disc replacement at L3-L4 and L4-L5 levels on current study. There is disc desiccation at L2-L3 level. Disc space heights are maintained above and below surgical levels The conus medullaris remains normal in position and signal ending at T12-L1 disc space level. The bone marrow signal intensity is within normal limits above and below s urgical levels. Axial images show T12-L1 and L1-L2 levels to remain within normal limits. Axial images at L2-L3 level redemonstrates mild to moderate broad disc bulge minimally effacing the a nterior thecal sac. Patent bilateral neural foramina. Axial images at L3-L4 and L4-L5 levels show artifact from metallic disc material. There are bilateral laminectomy defects with spinous process resection. There is some effacement of the left posterolate ral thecal sac at L3-L4 level axial image 11 due to facet arthropathy. There is more prominent efface ment of the lateral thecal sac at L4-L5 level axial image 7 due to facet arthropathy. Axial images at L5-S1 level show moderate to advanced facet arthropathy. There is tiny central disc p rotrusion. There is effacement of the lateral thecal sac. There is moderate to severe bilateral neura l foraminal narrowing right greater than left seen. IMPRESSION: Interval surgical change L3-L4 and L4-L5 levels. Increasing degenerative change L5-S1 lev el noted. Further findings as detailed above.
== END | disposition home or self-care (01) ==
LOC: RADMRIMAIN 12:36
PROVIDERS: ATTEND Nurse Practitioner Family
DX: M51.17 Intervertebral disc disorders with radiculopathy, lumbosacral region (principal); M43.26 Fusion of spine, lumbar region
CPT/HCPCS: 72148

== ENCOUNTER → 2023-02-27 | Outpatient (CLI) | payer OTHER ==
--- NOTE | 2023-02-28 19:45 | CT ---
EXAMINATION TYPE: CT chest w con DATE OF EXAM: 02/27/2023 COMPARISON: Radiograph 10/02/[address] 06/21/2022 HISTORY: 57-year-old male R04.2, HEMOPTYSIS and pain TECHNIQUE: Contiguous axial scanning of the chest after the administration of 100ml mL of Isovue 300. Coronal/sagittal reconstructions performed. CT DLP: 324.7mGycm. Automatic exposure control utilized for a dose reduction. FINDINGS: Heart is normal size without pericardial effusion. Three-vessel coronary artery calcifications are pr esent and are unremarkable for coronary disease. Ectatic aortic root at 3.8 cm. Variant direct takeoff of the left vertebral artery directly from the aortic arch. No thoracic lymphadenopathy by CT size criteria. Trace bilateral gynecomastia. Mild diffuse bronchial wall thickening. Mild emphysematous change. Sagittal centrilobular groundglass nodularity is present throughout the lungs. No consolidation or pleural effusion. Central airways ap pear clear. Small hiatal hernia. Visualized upper abdomen shows moderate fold thickening within the gastric fundu s and body. Correlate to exclude any symptoms of gastritis. Bones: Moderate degenerative disc disease midthoracic spine. IMPRESSION: 1. COPD with mild emphysema. Subtle centrilobular groundglass nodularity is present throughout. Findi ngs can be seen with smoking associated respiratory bronchiolitis. 2. No acute pulmonary process. 3. CAD with 3 vessel coronary artery calcifications. 4. Small hiatal hernia. There seems to be some fold thickening in the stomach that could represent ga stritis. Correlate with patient's symptoms.
== END | disposition home or self-care (01) ==
LOC: RADCTMAIN 16:28
PROVIDERS: ATTEND Internal Medicine
DX: J43.9 Emphysema, unspecified (principal); I25.10 Atherosclerotic heart disease of native coronary artery without angina pectoris; K44.9 Diaphragmatic hernia without obstruction or gangrene; R04.2 Hemoptysis
CPT/HCPCS: 71260; Q9967

== ENCOUNTER → 2023-03-15 | Outpatient (CLI) | payer OTHER ==
[2023-03-16 01:52] LABS: Basophils # (A) 0.02 X 10*3/uL (0.00-0.10); Basophils % (A) 0.3 %; Eosinophils # (A) 0.22 X 10*3/uL (0.04-0.35); Eosinophils % (A) 3.7 %; HCT 39.5 % (39.6-50.0); HGB 12.8 d/dL (12.0-15.0); Lymphocytes # (A) 1.66 X 10*3/uL (0.90-5.00); Lymphocytes % (A) 28.2 %; MCH 29.6 pg (27.0-32.0); MCHC 32.4 d/dL (32.0-37.0); MCV 91.4 FL (80.0-97.0); Mean Platelet Volume 11.7 FL (9.5-12.2); Monocytes # (A) 0.48 X 10*3/uL (0.20-1.00); Monocytes % (A) 8.1 %; NRBC Per 100 WBC 0 X 10*3/uL (0.00-0.01); Neutrophils % (A) 59.5 %; Platelet Count 165 X 10*3/uL (140-440); RBC 4.32 X 10*6/uL (4.40-5.60); RDW 13.4 % (11.5-14.5); WBC 5.89 X 10*3/uL (4.50-10.00)
[2023-03-16 02:17] LABS: Albumin 4.5 d/dL (3.8-4.9)
[2023-03-16 02:22] LABS: ALT 21 U/L (10-49); AST 26 U/L (14-35); Albumin 4.4 d/dL (3.8-4.9); Albumin/Globulin Ratio 1.76 Ratio (1.60-3.17); Alkaline Phosphatase 59 U/L (41-126); BUN/Creat Ratio 16.78 Ratio (12.00-20.00); Blood Urea Nitrogen 15.1 mg/dL (9.0-27.0); Calcium 9.5 mg/dL (8.7-10.3); Carbon Dioxide 30.4 mmol/L (21.6-31.8); Chloride 102 mmol/L (96-109); Chol/HDL Ratio 2.57 Ratio; Globulin 2.5 d/dL (1.6-3.3); Glucose 85 mg/dL (70-110); LDL Cholesterol,Calculated 73.7 mg/dL (0.0-131.0); Potassium 4.8 mmol/L (3.5-5.5); Sodium 142 mmol/L (135-145); Total Bilirubin 0.5 mg/dL (0.3-1.2); Total Protein 6.9 d/dL (6.2-8.2); VLDL Calculation 10.54 mg/dL (5.00-40.00)
[2023-03-16 02:35] LABS: Hepatitis A Antibody IgM Nonreactive; Hepatitis B Core IgM Nonreactive; Hepatitis B Surface Antigen Nonreactive; Hepatitis C IgG Antibody Nonreactive
[2023-03-16 03:22] LABS: HIV 2 AB Non-Reactive (Non-Reactive); HIV AB P24 Non-Reactive (Non-Reactive); HIV P24 AG Non-Reactive (Non-Reactive)
[2023-03-16 20:46] LABS: Gamma Globulin 0.95 d/dL (0.70-1.50)
== END | disposition home or self-care (01) ==
LOC: LABWHC1 15:36
PROVIDERS: ATTEND Internal Medicine
DX: R21 Rash and other nonspecific skin eruption (principal)
CPT/HCPCS: 36415; 80053; 80061; 80074; 84165; 84443; 85025; 86038; 87390

== ENCOUNTER 2023-09-05 12:21 | Emergency (ER) | payer OTHER ==
[2023-09-05 12:51] VITALS: TEMP 97.2
[2023-09-05] MEDS ORDERED: KETOROLAC 15 MG/ML 1 ML VIAL IM STA (13:08)
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
--- NOTE | 2023-09-05 13:49 | XR ---
EXAMINATION TYPE: XR Hip RT and AP Pelvis DATE OF EXAM: 09/05/2023 CLINICAL HISTORY: pain TECHNIQUE: AP and frogleg views of the right hip are obtained. Single view pelvis is also submitted. COMPARISON: None. FINDINGS: There is no acute fracture/dislocation evident. The joint space appears within normal li mits. The overlying soft tissue appears unremarkable. IMPRESSION: 1. There is no acute fracture or dislocation. ICD 10 NO FRACTURE, INITIAL EVALUATION
[2023-09-05 15:46] VITALS: BP 127/81; PULSE 62; RESP 18
== END 2023-09-05 15:23 | disposition home or self-care (01) ==
LOC: EC 12:21
DX: M25.551 Pain in right hip (principal); M25.552 Pain in left hip; M54.2 Cervicalgia; G89.29 Other chronic pain; M54.9 Dorsalgia, unspecified; R53.1 Weakness; I10 Essential (primary) hypertension; J44.9 Chronic obstructive pulmonary disease, unspecified; E78.5 Hyperlipidemia, unspecified; F41.9 Anxiety disorder, unspecified; F17.200 Nicotine dependence, unspecified, uncomplicated; F12.90 Cannabis use, unspecified, uncomplicated; Z88.5 Allergy status to narcotic agent; Z91.030 Bee allergy status; Z79.899 Other long term (current) drug therapy; W01.0XXA Fall on same level from slipping, tripping and stumbling without subsequent striking against object, initial encounter; Y92.009 Unspecified place in unspecified non-institutional (private) residence as the place of occurrence of the external cause
CPT/HCPCS: 73502; 99284; 96372; J1885

== ENCOUNTER → 2024-07-09 | Outpatient (CLI) | payer OTHER ==
--- NOTE | 2024-07-10 08:35 | MR ---
EXAMINATION TYPE: MR cervical spine wo con DATE OF EXAM: 07/09/2024 1:51 PM COMPARISON: NONE HISTORY: Neck pain, headaches, left arm weakness. Multiplanar MultiSpin echo imaging of the cervical spine was performed. Comparison: none C2-C3: No evidence for degenerative disc disease. No disc bulge/herniation or protrusion. No Canal stenosis. Foramina are patent bilaterally. C3-C4: No evidence for degenerative disc disease. No disc bulge/herniation or protrusion. No Canal stenosis. Foramina are patent bilaterally. C4-C5: Mild disc desiccation mild posterior disc bulge. Mild effacement ventral thecal sac without ev idence for central stenosis or andrés disc herniation. Degenerative changes of the cervical apophyseal joints with mild left foraminal encroachment. C5-C6: Mild disc desiccation mild posterior disc bulge. Mild effacement ventral thecal sac without ev idence for central stenosis or andrés disc herniation. Degenerative changes of the cervical apophyseal joints with mild left foraminal encroachment. C6-C7: Mild disc desiccation mild posterior disc bulge. Effacement ventral thecal sac with borderline central stenosis. Degenerative changes of the cervical apophyseal joints with moderate right-sided f oraminal encroachment and mild left-sided foraminal encroachment. C7-T1: No evidence for degenerative disc disease. No disc bulge/herniation or protrusion. No Canal stenosis. Foramina are patent bilaterally. Cervical segments are intact. There is normal alignment. Cervical spinal cord is of normal signal. Craniovertebral junction relationships are within normal limits. Generative endplate marrow changes . Hemangioma at T3. IMPRESSION: 1. Multilevel degenerative disc disease with multilevel foraminal encroachment and borderline stenosi s as outlined above. [facility], , 07/10/2024 8:32 AM
== END | disposition home or self-care (01) ==
LOC: RADMRIMAIN 13:21
PROVIDERS: ATTEND Orthopaedic Surgery
CPT/HCPCS: 72141

== ENCOUNTER → 2024-08-30 | Outpatient (CLI) | payer OTHER ==
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
== END | disposition home or self-care (01) ==
LOC: RADMRIMAIN 11:08
PROVIDERS: ATTEND Orthopaedic Surgery
DX: M67.814 Other specified disorders of tendon, left shoulder (principal); M75.112 Incomplete rotator cuff tear or rupture of left shoulder, not specified as traumatic; M19.012 Primary osteoarthritis, left shoulder

== ENCOUNTER → 2024-12-19 | Outpatient (CLI) | payer OTHER ==
--- NOTE | 2024-12-19 21:08 | CT ---
EXAMINATION TYPE: CT chest w con DATE OF EXAM: 12/19/2024 5:10 PM COMPARISON: None. CLINICAL INDICATION: Male, 59 years old with history of R04.2 HEMOPTYSIS, Hemoptysis, TECHNIQUE: CT of the chest is performed on a spiral scan at 2 mm thick sections. Study is performed with intravenous contrast timed for evaluation for pulmonary embolism. This will limit additional po rtions of the evaluation. 10mm MIP images reconstructed by the technologist are reviewed on the comp uter in the axial plane. Contrast used:100 cc mL of Isovue 370 with IV Contrast, (none if empty) Oral contrast used: (none if empty) CT DLP: 344.5 mGycm, Automated exposure control for dose reduction was used. FINDINGS: No persistent filling defects are evident to suggest an acute pulmonary embolism. No mediastinal or hilar adenopathy enlarged by CT criteria is evident. The ascending aorta diameter at the level of the main pulmonary artery is 3.8 cm. The main pulmonary artery diameter at the bifurcation is 2.7 cm. There is a very faint punctate density within the anterior right midlung, series 4 image 32, not pres ent previously. Lung windows otherwise appear clear. Tracheobronchial tree as visualized appears normal No significant coronary artery calcifications. Limited CT sections were through the upper abdomen. Upper abdomen appears unremarkable. IMPRESSION: 1. No suspicious acute changes. 2. Very faint density within the anterior left mid lung. Follow-up exam in one year can be performed to reevaluate. [facility], , 12/19/2024 9:06 PM
== END | disposition home or self-care (01) ==
LOC: RADCTMAIN 16:37
PROVIDERS: ATTEND Internal Medicine
DX: J98.4 Other disorders of lung (principal); R04.2 Hemoptysis
CPT/HCPCS: 71260; Q9967